=== PATIENT | female | born 1955 | race Caucasian/White ===

== ENCOUNTER 2022-06-22 17:33 | Inpatient (IN) | payer MEDICARE ==
[~2022-06-22 17:33] MED LIST: Iopamidol 300 61% 100 ML VIAL FS ONE
[2022-06-22] MEDS ORDERED: Ondansetron PF 4 MG/2 ML Vial ONE (18:07)
[2022-06-22 18:28] LABS: #Basophils 0.1 10x3/uL (0.0-0.2); #Eosinphils 0.1 10x3/uL (0.0-0.5); #Monocytes 0.7 10x3/uL (0.0-1.1); #Neutrophils 11.9 10x3/uL (1.5-8.4); %Basophils 0.9 % (0.0-2.0); %Eosinophils 0.9 % (0.0-6.0); %Lymphocytes 6.6 % (18.0-47.0); %Monocytes 5.3 % (0.0-10.0); %Neutrophils 85.9 % (40.0-75.0); Hemoglobin 16.3 g/dL (12.0-15.5); Mean Corpuscular HGB CONC 35.2 g/dL (32.0-36.0); Mean Corpuscular Hemoglobin 32.3 pg (27.0-33.0); Mean Corpuscular Volume 91.9 fl (81.6-98.3); Mean Platelet Volume 9.5 fl (7.4-10.4); Platelet Count 470 10x3/uL (150-450); RBC Distribution Width 12.2 % (11.5-14.5); Red Blood Cell (RBC) Count 5.04 10x6/uL (3.90-5.03); White Blood Cell (WBC) Count 13.9 10x3/uL (3.5-10.5)
[2022-06-22 18:34] LABS: Bilirubin 3+ (Negative); Blood, Urine 25 (Negative); Clarity Clear (Clear); Glucose, Urine (Dipstick) Normal (Negative); Ketone, Urine 15 mg/dL (Negative); Leukocyte 25 (Negative); Nitrite Negative (Negative); Protein, Urine (Dipstick) 100 mg/dl (Neg-Trace)
[2022-06-22] MEDS ORDERED: Fentanyl 100 MCG/2 ML VIAL ONE (18:40)
[2022-06-22 18:43] LABS: ALT (SGPT) 10 U/L (8-55); AST (SGOT) 23 U/L (5-34); Albumin 5.2 g/dL (3.4-4.8); Alkaline Phosphatase 57 U/L (40-110); Anion Gap 19 mmol/L (10-20); BUN (Urea Nitrogen) 17 mg/dL (9.8-20.1); Bilirubin, Total 0.7 mg/dL (0.2-1.2); Calc. Creatinine Clearance 0 mL/min (70-130); Calcium 11.3 mg/dL (7.8-10.44); Carbon Dioxide 21 mmol/L (23-31); Chloride 103 mmol/L (98-107); Estimated GFR 53; Globulin 2.9 g/dL (2.4-3.5); Glucose 138 mg/dL (80-115); Potassium 4.4 mmol/L (3.5-5.1); Protein, Total 8.1 g/dL (5.8-8.1); Sodium 139 mmol/L (136-145)
[2022-06-22 18:46] LABS: Bacteria/HPF 3+ HPF (None Seen); Mucous/LPF 3+ LPF (<2+); RBC/HPF 0-3 HPF (0-3); Squamous Epithelial 0-3 HPF (0-3); WBC/HPF 0-3 HPF (0-3)
[2022-06-22 18:47] LABS: Calcium Oxalate Crystals 2+ HPF (None Seen)
[2022-06-22] MEDS ORDERED: Lidocaine Viscous Sol 2% 15 ml UD Cup ONE (20:31)
[2022-06-22] MEDS ORDERED: Mag-Al Plus 1200 MG/1200 MG/120 MG/30 ML UDCUP ONE (20:31)
[2022-06-22 22:58] VITALS: BMI 22.8
[2022-06-22] MEDS: Potassium Chloride 20 MEQ in Lactated Ringer's 1,000 ML IV SCH (23:34)
[2022-06-23] MEDS: Morphine 4 MG/ML VIAL SLOW IVP PRN ×4 (00:12→18:55)
[2022-06-23] MEDS: Ondansetron PF 4 MG/2 ML Vial IVP PRN ×3 (00:21→15:00)
[2022-06-23] MEDS: Ketorolac Tromethamine 30 MG/ML VIAL IVP PRN ×3 (05:10→14:59)
[2022-06-23 05:22] LABS: #Basophils 0.1 10x3/uL (0.0-0.2); #Eosinphils 0.2 10x3/uL (0.0-0.5); #Monocytes 0.6 10x3/uL (0.0-1.1); #Neutrophils 5.5 10x3/uL (1.5-8.4); %Basophils 0.8 % (0.0-2.0); %Lymphocytes 16.9 % (18.0-47.0); %Monocytes 8.4 % (0.0-10.0); %Neutrophils 71.8 % (40.0-75.0); Hemoglobin 12.7 g/dL (12.0-15.5); Mean Corpuscular HGB CONC 34.7 g/dL (32.0-36.0); Mean Corpuscular Hemoglobin 31.8 pg (27.0-33.0); Mean Corpuscular Volume 91.5 fl (81.6-98.3); Mean Platelet Volume 9.4 fl (7.4-10.4); Platelet Count 335 10x3/uL (150-450); RBC Distribution Width 12.4 % (11.5-14.5); White Blood Cell (WBC) Count 7.7 10x3/uL (3.5-10.5)
[2022-06-23 05:31] LABS: Anion Gap 12 mmol/L (10-20); BUN (Urea Nitrogen) 18 mg/dL (9.8-20.1); Calc. Creatinine Clearance 50 mL/min (70-130); Calcium 9.1 mg/dL (7.8-10.44); Carbon Dioxide 23 mmol/L (23-31); Chloride 109 mmol/L (98-107); Estimated GFR 64; Glucose 117 mg/dL (80-115); Potassium 3.8 mmol/L (3.5-5.1); Sodium 140 mmol/L (136-145)
[2022-06-23] MEDS: Famotidine/PF 20 mg/2ml Vial SLOW IVP SCH ×2 (09:55→22:26)
[2022-06-23] MEDS: Potassium Chloride 20 MEQ in Lactated Ringer's 1,000 ML IV SCH ×2 (10:56→18:40)
[2022-06-23] MEDS ORDERED: HYDROmorphone 0.5 MG/0.5 ML SYRINGE SLOW IVP SCH (22:00)
[2022-06-24] MEDS: Potassium Chloride 20 MEQ in Lactated Ringer's 1,000 ML IV SCH (04:18)
[2022-06-24] MEDS: Ondansetron PF 4 MG/2 ML Vial IVP PRN ×2 (04:19→09:04)
[2022-06-24] MEDS: Morphine 4 MG/ML VIAL SLOW IVP PRN (08:48)
[2022-06-24] MEDS: Famotidine/PF 20 mg/2ml Vial SLOW IVP SCH (08:48)
[2022-06-24] MEDS: Ketorolac Tromethamine 30 MG/ML VIAL IVP PRN (08:48)
[2022-06-24 13:45] VITALS: BP 133/67; TEMP 97.8
== END 2022-06-24 15:35 | disposition home or self-care (01) | DRG 390 ==
LOC: CSHERS 17:33 → CSHTELE 22:37 → OBSVTOIN 06-23 12:15
PROVIDERS: ADMIT Family Medicine; ATTEND Family Medicine
PROC: 0D9670Z Drainage of Stomach with Drainage Device, Via Natural or Artificial Opening (ICD-10-PCS; principal; 2022-06-23)
DX: K56.600 Partial intestinal obstruction, unspecified as to cause (principal); K58.1 Irritable bowel syndrome with constipation; K83.8 Other specified diseases of biliary tract; E78.5 Hyperlipidemia, unspecified; K56.7 Ileus, unspecified; J45.20 Mild intermittent asthma, uncomplicated; Z20.822 Contact with and (suspected) exposure to COVID-19; Z88.2 Allergy status to sulfonamides; Z90.49 Acquired absence of other specified parts of digestive tract; Z98.890 Other specified postprocedural states; Z90.710 Acquired absence of both cervix and uterus
CPT/HCPCS: 36415; 74177; 74250; 80048; 80053; 81003; 81015; 82274; 83605; 83735; 85025; 87324; 87449; 93005; 96361; 96372; 96374; 96375; 96376; G0378; J1170; J1650; J1885; J2270; J2405; J3010; J3480; J7120; Q9967; S0028; U0003; U0005

== ENCOUNTER 2023-06-29 22:47 | Emergency (ER) | payer MEDICARE ==
[2023-06-30 00:02] LABS: #Monocytes 0.6 10x3/uL (0.0-1.1); #Neutrophils 2.9 10x3/uL (1.5-8.4); %Basophils 0.5 % (0.0-2.0); %Eosinophils 0.2 % (0.0-6.0); %Lymphocytes 13.9 % (18.0-47.0); %Monocytes 15.4 % (0.0-10.0); %Neutrophils 69.8 % (40.0-75.0); Hematocrit 44.2 % (34.9-44.5); Hemoglobin 15.2 g/dL (12.0-15.5); Mean Corpuscular HGB CONC 34.4 g/dL (32.0-36.0); Mean Corpuscular Hemoglobin 30.8 pg (27.0-33.0); Mean Corpuscular Volume 89.5 fl (81.6-98.3); Mean Platelet Volume 9.6 fl (7.4-10.4); Platelet Count 295 10x3/uL (150-450); RBC Distribution Width 13.6 % (11.5-14.5); Red Blood Cell (RBC) Count 4.94 10x6/uL (3.90-5.03); White Blood Cell (WBC) Count 4.2 10x3/uL (3.5-10.5)
[2023-06-30 00:05] LABS: ALT (SGPT) 20 U/L (8-55); AST (SGOT) 31 U/L (5-34); Albumin 4.8 g/dL (3.4-4.8); Alkaline Phosphatase 59 U/L (40-110); Anion Gap 15 mmol/L (10-20); BUN (Urea Nitrogen) 30 mg/dL (9.8-20.1); Bilirubin, Total 0.5 mg/dL (0.2-1.2); Calc. Creatinine Clearance 0 mL/min (70-130); Calcium 10.2 mg/dL (7.8-10.44); Carbon Dioxide 26 mmol/L (23-31); Chloride 98 mmol/L (98-107); Estimated GFR 51; Globulin 3.1 g/dL (2.4-3.5); Glucose 154 mg/dL (80-115); Potassium 3.6 mmol/L (3.5-5.1); Protein, Total 7.9 g/dL (5.8-8.1); Sodium 135 mmol/L (136-145)
[2023-06-30] MEDS ORDERED: Fleet Saline Enema 133 ML BOT PR SCH (00:30)
== END 2023-06-30 02:23 | disposition home or self-care (01) ==
LOC: CSHERS 22:47
DX: K56.41 Fecal impaction (principal)
CPT/HCPCS: 74018; 74176; 80053; 85025